=== PATIENT | female | born 2000 | race African-American/Black ===

== ENCOUNTER 2020-10-15 18:20 | Emergency (ER) | payer OTHER ==
[~2020-10-15] VITALS: Ht 167.6 cm; Wt 78.0 kg
[2020-10-15] MEDS ORDERED: IBUPROFEN 600MG TABLET PO ONE (21:00)
[2020-10-15 21:09] VITALS: BP 134/76
== END 2020-10-15 22:23 | disposition home or self-care (01) ==
LOC: ER 18:20
DX: M54.2 Cervicalgia (principal)
CPT/HCPCS: 72040; 81025; 99283